=== PATIENT | female | born 1980 | race Two or more races ===

== ENCOUNTER 2024-02-29 14:54 | Inpatient (IN) | payer MEDICAID, OTHER ==
[~2024-02-29] VITALS: Ht 160 cm; Wt 104.4 kg
--- NOTE | 2024-02-29 16:12 | ED.PDOC ---
HPI Comments A 43 year old female presents to the ED with a chief complaint of chest pain with SOB onset 5 days. Patient states she began experiencing chest pain, described as a pressure/tightness sensation and SOB 5 days ago and noticed it gets worse when she tries to walk. Patient rates her pain a 8/10. She also noticed her pain radiates to her back and her bilateral legs are swollen. She has a past medical history of Asthma and DM. No other symptoms or modifying factors present at this time. Chief Complaint: Shortness of Breath Time Seen by MD: 15:44 Primary Care Provider: DOES NOT KNOW NAME Reviewed Notes: Nurses Notes, Medications, Allergies Allergies: Coded Allergies: NO KNOWN ALLERGIES (Unverified , 02/29/24) Information Source: Patient Mode of Arrival: Ambulatory Severity: Moderate Timing: Days Duration: Since onset Prehospital treatment: None Radiation: Back Quality: Pressure, Tightness Onset: With Light Exertion Cardiac Risk Factors: Diabetes Associated Signs and Symptoms: SOB, Calf Swelling, Back Pain Past Medical History PAST MEDICAL HISTORY: Asthma, DM Surgical History: Hysterectomy, Tubal Ligation [employer] History: No Pertinent [employer] History Family History Family History: Family hx of DM, Family hx of Cancer Social History Smoker: Non-Smoker Alcohol: Denies ETOH Use Drugs: Marijuana Lives In: Home Constitutional: denies: chills, diaphoresis, fatigue, fever, malaise, sweats, weakness, others EENTM: denies: blurred vision, double vision, ear bleeding, ear discharge, ear drainage, ear pain, ear ringing, eye pain, eye redness, hearing loss, mouth pain, mouth swelling, nasal discharge, nose bleeding, nose congestion, nose pain, photophobia, tearing, throat pain, throat swelling, voice changes, others Respiratory: reports: shortness of breath; denies: cough, hemoptysis, orthopnea, SOB at rest, SOB with excertion, stridor, wheezing, others Cardiovascular: reports: chest pain; denies: dizzy spells, diaphoresis, Dyspnea on exertion, edema, irregular heart beat, left arm pain, lightheadedness, palpitations, PND, syncope, others Gastrointestinal: denies: abdomen distended, abdominal pain, blood streaked bowels, constipated, diarrhea, dysphagia, difficulty swallowing, hematemesis, melena, nausea, poor appetite, poor fluid intake, rectal bleeding, rectal pain, vomiting, others Genitourinary: denies: abnormal vagina bleeding, burning, dyspareunia, dysuria, flank pain, frequency, hematuria, incontinence, pain, , vagina discharge, urgency, others Neurological: denies: dizziness, fainting, headache, left sided numbness, left sided weakness, numbness, paresthesia, pre-existing deficit, right sided numbness, right sided weakness, seizure, speech problems, tingling, tremors, weakness, others Musculoskeletal: reports: back pain, others (bilateral leg swelling); denies: gout, joint pain, joint swelling, muscle pain, muscle stiffness, neck pain Integumetry: denies: bruises, change in color, change in hair/nails, dryness, laceration, lesions, lumps, rash, wounds, others Allergic/Immunocompromised: denies: Difficulty Healing, Frequent Infections, Hives, Itching, others Hematologic/Lymphatic: denies: anemia, blood clots, easy bleeding, easy bruising, swollen glands, others Endocrine: denies: excessive hunger, excessive sweating, excessive thirst, excessive urination, flushing, intolerance to cold, intolerance to heat, unexplained weight gain, unexplained weight loss, others Psychiatric: denies: anxiety, bipolar disorder, depression, hopeless, panic disorder, schizophrenia, sleepless, suicidal, others Physical Exam General Appearance: Mild Distress HEENT: Normal ENT Inspection, Pharynx Normal, TMs Normal Neck: Full Range of Motion, Non-Tender, Normal, Normal Inspection Respiratory: Chest Non-Tender, Lungs Clear, No Accessory Muscle Use, No R espiratory Distress, Normal Breath Sounds Cardiovascular: No Edema, No JVD, No Murmur, No Gallop, Normal Peripheral Pulses, Regular Rate/Rhythm Breast Exam: Deferred Gastrointestinal: No Organomegaly, Non Tender, No Pulsatile Mass, Normal Bowel Sounds, Soft Genitalia: Deferred Pelvic: Deferred Rectal: Deferred Extremities: No calf tenderness, Normal capillary refill, No pedal edema Musculoskeletal : Apperance: Normal Neurologic: Alert, 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 Was a procedure done?: No CP Differential Dx Differential Diagnosis: Angina, Pulmonary Embolus, PVC's, Renal Failure Differential Diagnosis: CHF Differential Diagnosis: Esophageal reflux/spasm, Gastritis X-Ray, Labs, Meds, VS Vital Signs Date Time Temp Pulse Resp B/P (MAP) Pulse Ox O2 Delivery O2 Flow Rate FiO2 02/29/24 19:56 93 Room Air 02/29/24 19:56 93 Room Air* 0 21 02/29/24 19:56 98.7 77 18 158/86 93 0.0 21 98.7 02/29/24 18:25 77 18 93 Room Air* 0 21 02/29/24 18:25 77 18 158/86 (110) 93 02/29/24 17:14 93 02/29/24 15:46 17 97 Room Air* 0 02/29/24 15:43 98.7 90 17 148/93 (111) 97 Lab Test 02/29/24 19:55 02/29/24 18:00 02/29/24 17:09 02/29/24 16:55 Range/Units Troponin I High Sensitivity < 3 L < 3 L < 3 L </=34 ng/L White Blood Count 7.7 4.4-10.8 10^3/uL Red Blood Count 4.75 4.0-5.20 10^6/uL Hemoglobin 12.2 12.2-16.2 g/dL Hematocrit 37.1 36.0-46.0 % Mean Corpuscular Volume 78.2 L 80.0-100.0 fL Mean Corpuscular Hemoglobin 25.6 L 28.0-32.0 pg Mean Corpuscular Hemoglobin Concent 32.8 32.0-36.0 g/dL Red Cell Distribution Width 16.8 H 11.8-14.3 % Platelet Count 331 140-450 10^3/uL Mean Platelet Volume 8.5 6.9-10.8 fL Neutrophils (%) (Auto) 64.5 37.0-80.0 % Lymphocytes (%) (Auto) 25.8 10.0-50.0 % Monocytes (%) (Auto) 7.6 0.0-12.0 % Eosinophils (%) (Auto) 1.4 0.0-7.0 % Basophils (%) (Auto) 0.7 0.0-2.0 % Neutrophils # (Auto) 5.0 1.6-8.6 10 ^3/uL Lymphocytes # (Auto) 2.0 0.4-5.4 10 ^3/uL Monocytes # (Auto) 0.6 0-1.3 10 ^3/uL Eosinophils # (Auto) 0.1 0-0.8 10 ^3/uL Basophils # (Auto) 0.1 0-0.2 10 ^3/uL Nucleated Red Blood Cells 0.0 % D-Dimer, Quantitative 1.14 H 0.0-0.49 mg/L FEU Sodium Level 140 136-145 mmol/L Potassium Level 3.6 3.5-5.1 mmol/L Chloride Level 108 H 98-107 mmol/L Carbon Dioxide Level 25 20-31 mmol/L Anion Gap 7 5-15 Blood Urea Nitrogen 9 9-23 mg/dL Creatinine 1.06 H 0.550-1.02 mg/dL Glomerular Filtration Rate Calc 67 >90 mL/min BUN/Creatinine Ratio 8.5 L 10.0-20.0 Serum Glucose 103 74-106 mg/dL Calcium Level 9.9 8.7-10.4 mg/dL B-Type Natriuretic Peptide 11.31 0-100 pg/mL Urine Color Light-red Yellow Urine Clarity Turbid H Clear Urine pH 5.5 5.0-9.0 Urine Specific [place] 1.012 1.001-1.035 Urine Protein 1+ H Negative Urine Ketones 1+ H Negative Urine Blood 3+ H Negative /uL Urine Nitrite Negative Negative Urine Bilirubin Negative Negative Urine Urobilinogen Normal Negative mg/dL Urine Leukocyte Esterase 2+ Negative /uL Urine RBC 2920 0 - 4 /hpf Urine WBC 153 0 - 5 /hpf Urine Squamous Epithelial Cells Few <5 /hpf Urine Bacteria None seen None Seen /hpf Urine Glucose Normal Normal mg/dL PROCEDURE(s): CXRP - CHEST PORTABLE IMPRESSION: 1. No radiographic evidence of acute cardiopulmonary disease. HS:Y The urine test is positive for a UTI The patient was being started on 1 g of Rocephin IV piggyback The patient's CBC is within normal limits The troponin level x3 is negative The chemistry panel is within normal limits We are ordering a CT scan of the chest to rule out PE secondary to the D-dimer being elevated at 1.14 The patient was being admitted at this time. Images Reviewed?: Images reviewed and evaluated by me Time of 1ST Reevaluation: 16:14 Reevaluation 1ST: Unchanged Patient Education/Counseling: Diagnosis, Treatment, Prognosis Family Education/Counseling: No Family Present Departure 1 Departure Time of Disposition: 20:38 Impression: Primary Impression: Acute respiratory failure Qualified Codes: J96.01 - Acute respiratory failure with hypoxia Additional Impressions: Elevated d-dimer UTI (urinary tract infection) Qualified Codes: N30.01 - Acute cystitis with hematuria Disposition: ADMITTED INPATIENT Admit to: [facility] Condition: Fair Critical Care Note Critical Care Time?: Yes (35 min-critical care time only) Stability Stability form required: Yes Unstable for transfer: Telemetry monitoring (Telemetry monitoring required), ED Physician Assesment (Clinical assesment) Heart Score Heart Score: Heart Score Response (Comments) Value History Moderate Suspicious 1 EKG Repolarization Disturb 1 Age <45 0 Risk Factors 1 or 2 risk factors 1 Troponin Normal limit 0 Total 3 I personally scribed for DAVID CRUZ MD ([email or web address]) on 02/29/24 at 16:12. Electronically submitted by Annie Alford ([email or web address]). I personally scribed for DAVID CRUZ MD ([email or web address]) on 02/29/24 at 16:55. Electronically submitted by Annie Alford ([email or web address]). DAVID CRUZ MD Feb 29, 2024 16:12
--- NOTE | 2024-02-29 16:33 | DVH ---
CHEST RADIOGRAPH Indication:sob Technique: Single frontal view of the chest was obtained Comparison: None FINDINGS: Lines and Tubes: None Lungs: No focal consolidation. Pleura: No effusion. No pneumothorax. Cardiomediastinal contours: Unremarkable Bones: No acute osseous abnormality. IMPRESSION: 1. No radiographic evidence of acute cardiopulmonary disease. HS:Y
[2024-02-29 16:55] LABS: Urine Bacteria None Seen /hpf (None Seen)
[2024-02-29 17:24] LABS: Urine Blood 3+ /uL (Negative); Urine Clarity Turbid (Clear); Urine Color Light-Red (Yellow); Urine Protein, UAD 1+ (Negative); Urine Specific Gravity 1.012 (1.001-1.035); Urine Urobilinogen Normal (Negative); Urine WBC 153 /hpf (0 - 5); Urine pH 5.5 (5.0-9.0)
[2024-02-29 17:26] LABS: Basophils # (auto) 0.1 10 ^3/uL (0-0.2); Basophils % (auto) 0.7 % (0.0-2.0); Eosinophils # (auto) 0.1 10 ^3/uL (0-0.8); Eosinophils % (auto) 1.4 % (0.0-7.0); Hematocrit 37.1 % (36.0-46.0); Hemoglobin 12.2 g/dL (12.2-16.2); Lymphocytes % (auto) 25.8 % (10.0-50.0); Mean Corpuscular Hemoglobin 25.6 pg (28.0-32.0); Mean Corpuscular Hgb Conc. 32.8 g/dL (32.0-36.0); Mean Corpuscular Volume 78.2 fL (80.0-100.0); Monocytes # (auto) 0.6 10 ^3/uL (0-1.3); Monocytes % (auto) 7.6 % (0.0-12.0); Neutrophils % (auto) 64.5 % (37.0-80.0); Platelet Count (auto) 331 10^3/uL (140-450); Red Blood Cells 4.75 10^6/uL (4.0-5.20); Red Cell Distribution Width 16.8 % (11.8-14.3); White Blood Cell 7.7 10^3/uL (4.4-10.8)
[2024-02-29 17:49] LABS: Chloride 108 mmol/L (98-107); Potassium 3.6 mmol/L (3.5-5.1); Sodium 140 mmol/L (136-145)
[2024-02-29 17:50] LABS: Anion Gap 7 (5-15); Calcium 9.9 mg/dL (8.7-10.4); Carbon Dioxide 25 mmol/L (20-31)
[2024-02-29 17:55] LABS: BUN/Creatinine Ratio 8.5 (10.0-20.0); Blood Urea Nitrogen 9 mg/dL (9-23); Glucose 103 mg/dL (74-106)
[2024-02-29 18:25] VITALS: PULSE 77; RESP 18; O2SAT 93
[2024-02-29] MEDS ORDERED: MORPHINE SULFATE INJ 2 MG/ml SYRG IV PRN ×2 (19:45→23:15)
[2024-02-29] MEDS ORDERED: HYDROcodone-ACET 5/325MG TAB PO PRN (19:45)
[2024-02-29] MEDS ORDERED: DOCUSATE SOD 100 MG CAP PO PRN (19:45)
[2024-02-29] MEDS ORDERED: DEXTROSE (50%) 50ML SYRG IV PRN (19:45)
[2024-02-29] MEDS ORDERED: cloNIDine HCL 0.1 MG TAB PO PRN (19:45)
[2024-02-29] MEDS ORDERED: ONDANSETRON HCL 4 MG/2 ML VIAL IV PRN (19:45)
[2024-02-29 19:56] VITALS: BP 158/86; PULSE 77; RESP 18; TEMP 98.7; O2SAT 93
[2024-02-29] MEDS: cefTRIAXone 1GM/50ML D5W 50 ML IV ONE (21:06)
--- NOTE | 2024-02-29 21:19 | DVH ---
CT ANGIOGRAM CHEST WITH CONTRAST FOR PULMONARY EMBOLUS CLINICAL HISTORY: sob TECHNIQUE: Helical axial scans of the chest during dynamic intravenous contrast injection. Pulmonary embolism protocol. Multiplanar reformats. Postprocessing MIP images. One or more of the following rad iation dose reduction techniques were used for this examination: automated exposure control, adjustme nt of the mA and/or kV according to patient size, use of iterative reconstruction technique. COMPARISON: Chest x-ray obtained earlier the same day. FINDINGS: Pulmonary arteries: Adequate enhancement of the pulmonary arteries to the very proximal segmental lev el. Streak and motion artifact somewhat limit evaluation. As visualized, no discrete filling defects identified within the central, lobar or very proximal segmental branches. Mediastinum: Heart is normal in size. No pericardial effusion. No mediastinal adenopathy. Lung parenchyma: No dominant consolidation. Pleura: No sizable pleural effusions or pneumothorax. Chest wall and axillae: No appreciable axillary adenopathy. No grossly displaced rib fractures identi fied. Upper abdomen: Lap band device is noted. No acute findings as visualized. IMPRESSION: No definite evidence of pulmonary embolism as visualized.
[2024-02-29] MEDS: IOHEXOL 350 MG/ML 100ML IJ ONE (21:28)
[2024-02-29] MEDS: InsuLIN REG 1unit/0.01ml Soln (100units/ml) SC SCH (21:51)
[2024-02-29] MEDS: ACCU-CHEK COMFORT CURVE STRIP VI SCH (21:51)
[2024-02-29] MEDS: SODIUM CHLOR 0.9% PF (SALINE LOCK) 10ML VIAL/SYR IV SCH (21:51)
--- NOTE | 2024-02-29 22:08 | DVHHPRES ---
History of Present Illness Resident Creating Document: PAOLA BELLA RESIDENT History of Present Illness This is a 43-year-old female with past medical history of asthma, prediabetes presented to the ED with a chief complaint of intermittent shortness of breath and chest pain for last 5 days prior to this admission. According to the patient central chest pain, sharp in nature 8/10 and radiates to the left shoulder with no aggravating and relieving factors and associated with shortness of breath. Patient has history of seasonal allergic asthma and exacerbate espec ially in winter fall and spring . She also mentioned that recently she noticed shortness of breath getting worse when she tries to walk or any kind of exertion. The patient denies abdominal pain, dizziness, diaphoresis, nausea, vomiting or any change in bowel and bladder habit. Past Medical History Bronchial asthma, prediabetes Past Surgical History Tubal ligation, adenoidectomy, lap band and emergency Family History Type 2 diabetes runs in the family Smoke: No ALCOHOL: none Drugs: None Lives: with Family Review of Systems Constitutional: No: Fever, Chills, Sweats, Weakness, Malaise, Other Eyes: No: Pain, Vision change, Conjunctivae inflammation, Eyelid inflammation, Other, Redness ENT: No: Ear pain, Ear discharge, Nose pain, Nose discharge, Nose congestion, Mouth pain, Mouth swelling, Throat pain, Throat swelling, Other Respiratory: Shortness of breath; No: Cough, Dry, SOB with excertion, Wheezing, Hemoptysis, Pleuritic Pain, Sputum, Wheezing, Other Cardiovascular: Chest Pain; No: Palpitations, Orthopnea, Paroxysmal Noc. Dyspnea, Edema, Lt Headedness, Other Gastrointestinal: No: Nausea, Vomiting, Abdominal Pain, Diarrhea, Constipation, Melena, Hematochezia, Other Genitourinary: No Dysuria, No Frequency, No Incontinence, No Hematuria, No Retention, No Other Musculoskeletal: No: other, neck pain, shoulder pain, arm pain, back pain, hand pain, leg pain, foot pain Skin: No: Rash, Lesions, Jaundice, Bruising, Other Neurological: No: Weakness, Numbness, Incoordination, Change in speech, Confusion, Seizures, Other Allergies: Coded Allergies: NO KNOWN ALLERGIES (Unverified , 02/29/24) Medications Current Medications Medications Dose Ordered Sig/Boom Route Start Time Stop Time Status Last Admin Dose Admin Clonidine HCl 0.1 mg Q4HP PRN PO 02/29/24 19:45 Albuterol 2.5 mg Q4HPRN PRN NEB 02/29/24 19:45 Diagnostic Test (Pha) 1 strip ACHS 02/29/24 22:00 02/29/24 21:51 1 STRIP Insulin Human Regular ACHS SC 02/29/24 22:00 Dextrose 50 ml UD PRN IV 02/29/24 19:45 Sodium Chloride 10 ml Q8HR IV 02/29/24 22:00 02/29/24 21:51 10 ML Acetaminophen/ Hydrocodone Bitart 1 tab Q4HP PRN PO 02/29/24 19:45 Ondansetron HCl 4 mg Q4HP PRN IV 02/29/24 19:45 Docusate Sodium 100 mg BIDPRN PRN PO 02/29/24 19:45 Acetaminophen 650 mg Q6HP PRN PO 02/29/24 19:45 Morphine Sulfate 2 mg Q4HPRN PRN IV 02/29/24 19:45 Exam Vital Signs Vital Signs Date Time Temp Pulse Resp B/P (MAP) Pulse Ox O2 Delivery O2 Flow Rate FiO2 02/29/24 21:08 98.3 84 18 149/74 (99) 98 98.3 02/29/24 19:56 Room Air 02/29/24 19:56 0 21 Exam Physical examination: General Appearance: Alert, Oriented X3, Cooperative, No acute distress HEENT: Atraumatic, PERRLA, EOMI, Mucous membrane moist/pink Respiratory: Clear to auscultation, Normal air movement Cardiovascular: Regular rate, Normal S1, Normal S2, No murmurs, no chest wall tenderness Abdominal: Normal bowel sounds, Soft, No tenderness, No hepatospenomegaly, No masses Extremities: No clubbing, No cyanosis, No edema, Normal pulses, No tenderness/swelling Skin: No rashes, No breakdown, No significant lesion Neuro: Normal gait, Normal speech, Strength at 5/5 X4 ext, Normal tone, Sensation intact, grossly intact cranial nerves. Psych/Mental Status: Mental status NL, Mood NL Labs/Xrays Labs Test 02/29/24 21:50 02/29/24 19:55 02/29/24 17:09 02/29/24 16:55 Range/Units POC Glucose 102 70-106 mg/dl Troponin I High Sensitivity < 3 L </=34 ng/L White Blood Count 7.7 4.4-10.8 10^3/uL Red Blood Count 4.75 4.0-5.20 10^6/uL Hemoglobin 12.2 12.2-16.2 g/dL Hematocrit 37.1 36.0-46.0 % Mean Corpuscular Volume 78.2 L 80.0-100.0 fL Mean Corpuscular Hemoglobin 25.6 L 28.0-32.0 pg Mean Corpuscular Hemoglobin Concent 32.8 32.0-36.0 g/dL Red Cell Distribution Width 16.8 H 11.8-14.3 % Platelet Count 331 140-450 10^3/uL Mean Platelet Volume 8.5 6.9-10.8 fL Neutrophils (%) (Auto) 64.5 37.0-80.0 % Lymphocytes (%) (Auto) 25.8 10.0-50.0 % Monocytes (%) (Auto) 7.6 0.0-12.0 % Eosinophils (%) (Auto) 1.4 0.0-7.0 % Basophils (%) (Auto) 0.7 0.0-2.0 % Neutrophils # (Auto) 5.0 1.6-8.6 10 ^3/uL Lymphocytes # (Auto) 2.0 0.4-5.4 10 ^3/uL Monocytes # (Auto) 0.6 0-1.3 10 ^3/uL Eosinophils # (Auto) 0.1 0-0.8 10 ^3/uL Basophils # (Auto) 0.1 0-0.2 10 ^3/uL Nucleated Red Blood Cells 0.0 % D-Dimer, Quantitative 1.14 H 0.0-0.49 mg/L FEU Sodium Level 140 136-145 mmol/L Potassium Level 3.6 3.5-5.1 mmol/L Chloride Level 108 H 98-107 mmol/L Carbon Dioxide Level 25 20-31 mmol/L Anion Gap 7 5-15 Blood Urea Nitrogen 9 9-23 mg/dL Creatinine 1.06 H 0.550-1.02 mg/dL Glomerular Filtration Rate Calc 67 >90 mL/min BUN/Creatinine Ratio 8.5 L 10.0-20.0 Serum Glucose 103 74-106 mg/dL Calcium Level 9.9 8.7-10.4 mg/dL B-Type Natriuretic Peptide 11.31 0-100 pg/mL Urine Color Light-red Yellow Urine Clarity Turbid H Clear Urine pH 5.5 5.0-9.0 Urine Specific [place] 1.012 1.001-1.035 Urine Protein 1+ H Negative Urine Ketones 1+ H Negative Urine Blood 3+ H Negative /uL Urine Nitrite Negative Negative Urine Bilirubin Negative Negative Urine Urobilinogen Normal Negative mg/dL Urine Leukocyte Esterase 2+ Negative /uL Urine RBC 2920 0 - 4 /hpf Urine WBC 153 0 - 5 /hpf Urine Squamous Epithelial Cells Few <5 /hpf Urine Bacteria None seen None Seen /hpf Urine Glucose Normal Normal mg/dL Assessment/Plan Assessment/Plan Assessment and plan: # Chest pain rule out ACS - Initial EKG and troponins were unremarkable. - Ordered echo - Consulted Dr. Mayorga # Shortness of breath, ruled out pulmonary embolism - D-dimer was elevated - CT angio ruled out the possibility of pulmonary embolism # ERI likely due to hemodynamically mediated/VMN - IV normal saline at 75 mL/hour - Monitor BMP # Acute cystitis - UA is consistent with UTI - Ordered urine C/S - IV ceftriaxone 1 g daily # Obesity class 3 ( BMI 41.1 kg/m2) - Counseled patient regarding weight loss, lifestyle modification and physical exercise # DVT prophylaxis - SCD Goal of care discussed with the patient for more than 20 minutes full code Plan of treatment discussed with Dr. Kang Plan discussed with: Patient, Other Date of Service: Feb 29, 2024 Billing Provider: YOSEF KANG MD Common Visit Codes: [id number] INP/OBS CARE (HIGH) PAOLA BELLA RESIDENT Feb 29, 2024 22:08 YOSEF KANG MD Mar 01, 2024 09:33
[2024-02-29] MEDS: SODIUM CHLORIDE 0.9% 1,000 ML IV SCH (22:15)
[2024-02-29] MEDS: MELATONIN 5 MG TAB PO ONE (22:24)
[2024-02-29] MEDS ORDERED: NITROGLYCERIN 0.4 MG SL TAB SL PRN (23:15)
[2024-03-01] VITALS (8 sets, daily range): BP systolic 135–144; BP diastolic 89–102; PULSE 74–96; RESP 16–19; TEMP 97.7–97.8; O2SAT 95–100
[2024-03-01] MEDS: ACETAMINOPHEN 325 MG TAB PO PRN (02:17)
[2024-03-01] MEDS: ALBUTEROL SULF 2.5 MG/0.5ML(0.5%) NEB SOLN NEB PRN (02:42)
[2024-03-01 04:03] LABS: Basophils # (auto) 0.1 10 ^3/uL (0-0.2); Basophils % (auto) 0.9 % (0.0-2.0); Eosinophils # (auto) 0.2 10 ^3/uL (0-0.8); Eosinophils % (auto) 2.1 % (0.0-7.0); Hematocrit 34.8 % (36.0-46.0); Hemoglobin 11.4 g/dL (12.2-16.2); Lymphocytes % (auto) 25.4 % (10.0-50.0); Mean Corpuscular Hemoglobin 25.4 pg (28.0-32.0); Mean Corpuscular Hgb Conc. 32.7 g/dL (32.0-36.0); Mean Corpuscular Volume 77.8 fL (80.0-100.0); Monocytes # (auto) 0.7 10 ^3/uL (0-1.3); Monocytes % (auto) 9.4 % (0.0-12.0); Neutrophils # (auto) 4.8 10 ^3/uL (1.6-8.6); Neutrophils % (auto) 62.2 % (37.0-80.0); Platelet Count (auto) 308 10^3/uL (140-450); Red Blood Cells 4.47 10^6/uL (4.0-5.20); Red Cell Distribution Width 16.7 % (11.8-14.3); White Blood Cell 7.8 10^3/uL (4.4-10.8)
[2024-03-01 04:16] LABS: Alanine Aminotransferase 24 U/L (7-40); Albumin 4.2 g/dL (3.2-4.8); Alkaline Phosphatase 56 U/L (46-116); Anion Gap 8 (5-15); Aspartate Aminotransferase 16 U/L (13-40); BUN/Creatinine Ratio 7.3 (10.0-20.0); Bilirubin, Total 0.4 mg/dL (0.2-1.0); Blood Urea Nitrogen 6 mg/dL (9-23); Calcium 9.6 mg/dL (8.7-10.4); Carbon Dioxide 23 mmol/L (20-31); Chloride 108 mmol/L (98-107); Glucose 109 mg/dL (74-106); Potassium 3.3 mmol/L (3.5-5.1); Sodium 139 mmol/L (136-145); Total Protein 7.4 g/dL (5.7-8.2)
--- NOTE | 2024-03-01 06:56 | DVHINCON2 ---
Date of service: Mar 01, 2024 History of Present Illness HPI Patient is a 43-year-old female who presented with few days of chest discomfort/pressure and shortness of breath. She mentions that she started Wegovy around 2 weeks ago. She also has been on allergy shots. She started to be more short of breath and was sent to the hospital by cleaning handyman. She also is complaining of leg swellings for the past few weeks. She does have dyspnea on exertion. Cardiology is involved for cardiac aspects of care. Patient denies any previously diagnosed cardiac problem. She occasionally feels palpitation. She denies orthopnea/PND. She has not lost consciousness. Denies dizziness. Past Medical History Others Past medical history includes asthma, prediabetes, obesity, old history of tubal ligation//appendectomy/lap band. Family history includes diabetes mellitus. She occasionally uses marijuana. Denies regular cigarette smoking. Family History: DM Smoker: No Hx (Negative) Alocohol: None Drugs: Marijuana Lives with: With family Review of Systems Constitutional: No symptom reported Ears, Nose, & Throat: No symptom reported Eyes: No symptom reported Pulmonary/Respiratory: Dyspnea Cardiovascular: Chest Pain, Palpitations Gastrointestinal: No symptom reported All Other Systems 14 point review of system was performed. Relevant findings as per above and as per HPI. Otherwise negative. H&P Exam Vital Signs Vital Signs Date Time Temp Pulse Resp B/P (MAP) Pulse Ox O2 Delivery O2 Flow Rate FiO2 03/01/24 06:36 88 20 157/71 (99) 98 02/29/24 21:08 98.3 98.3 02/29/24 19:56 Room Air 02/29/24 19:56 0 21 General Appeara: Well developed, Well nourished, Normal Appearance, Obese Head Exam: Normal inspection Eye Exam: bilateral eye PERRL Nasal Exam: Normal inspection Mouth: Normal Inspection Pulmonary/Respiratory: Lungs clear Cardiovascular/Chest: Edema, Regular rate Peripheral Pulses: 2+ carotid (R), 2+ carotid (L), 2+ femoral (R), 2+ femoral (L), 2+ dorsalis pedis (R), 2+ dorsalis pedis (L), 2+ Radial (R), 2+ Radial (L) Abdominal Exam: Normal bowel sounds, Soft, No hepatospenomegaly Neuro/Mental St: Alert, Oriented Appearance: Appropriate appearance Eye contact/ Speech: Cooperative Thoughts/Psych: Normal thought pattern Labs/Xrays Labs Test 03/01/24 06:27 03/01/24 03:35 02/29/24 19:55 02/29/24 17:09 Range/Units POC Glucose 112 H 70-106 mg/dl White Blood Count 7.8 4.4-10.8 10^3/uL Red Blood Count 4.47 4.0-5.20 10^6/uL Hemoglobin 11.4 L 12.2-16.2 g/dL Hematocrit 34.8 L 36.0-46.0 % Mean Corpuscular Volume 77.8 L 80.0-100.0 fL Mean Corpuscular Hemoglobin 25.4 L 28.0-32.0 pg Mean Corpuscular Hemoglobin Concent 32.7 32.0-36.0 g/dL Red Cell Distribution Width 16.7 H 11.8-14.3 % Platelet Count 308 140-450 10^3/uL Mean Platelet Volume 8.6 6.9-10.8 fL Neutrophils (%) (Auto) 62.2 37.0-80.0 % Lymphocytes (%) (Auto) 25.4 10.0-50.0 % Monocytes (%) (Auto) 9.4 0.0-12.0 % Eosinophils (%) (Auto) 2.1 0.0-7.0 % Basophils (%) (Auto) 0.9 0.0-2.0 % Neutrophils # (Auto) 4.8 1.6-8.6 10 ^3/uL Lymphocytes # (Auto) 2.0 0.4-5.4 10 ^3/uL Monocytes # (Auto) 0.7 0-1.3 10 ^3/uL Eosinophils # (Auto) 0.2 0-0.8 10 ^3/uL Basophils # (Auto) 0.1 0-0.2 10 ^3/uL Nucleated Red Blood Cells 0.0 % Sodium Level 139 136-145 mmol/L Potassium Level 3.3 L 3.5-5.1 mmol/L Chloride Level 108 H 98-107 mmol/L Carbon Dioxide Level 23 20-31 mmol/L Anion Gap 8 5-15 Blood Urea Nitrogen 6 L 9-23 mg/dL Creatinine 0.82 0.550-1.02 mg/dL Glomerular Filtration Rate Calc 91 >90 mL/min BUN/Creatinine Ratio 7.3 L 10.0-20.0 Serum Glucose 109 H 74-106 mg/dL Calcium Level 9.6 8.7-10.4 mg/dL Total Bilirubin 0.4 0.2-1.0 mg/dL Aspartate Amino Transferase (AST) 16 13-40 U/L Alanine Aminotransferase (ALT) 24 7-40 U/L Alkaline Phosphatase 56 46-116 U/L Total Protein 7.4 5.7-8.2 g/dL Albumin 4.2 3.2-4.8 g/dL Troponin I High Sensitivity < 3 L </=34 ng/L D-Dimer, Quantitative 1.14 H 0.0-0.49 mg/L FEU B-Type Natriuretic Peptide 11.31 0-100 pg/mL Test 02/29/24 16:55 Range/Units Urine Color Light-red Yellow Urine Clarity Turbid H Clear Urine pH 5.5 5.0-9.0 Urine Specific [place] 1.012 1.001-1.035 Urine Protein 1+ H Negative Urine Ketones 1+ H Negative Urine Blood 3+ H Negative /uL Urine Nitrite Negative Negative Urine Bilirubin Negative Negative Urine Urobilinogen Normal Negative mg/dL Urine Leukocyte Esterase 2+ Negative /uL Urine RBC 2920 0 - 4 /hpf Urine WBC 153 0 - 5 /hpf Urine Squamous Epithelial Cells Few <5 /hpf Urine Bacteria None seen None Seen /hpf Urine Glucose Normal Normal mg/dL Assessment/Plan Plan Patient is a 43-year-old female who presented with few days of chest discomfort/pressure and shortness of breath. She mentions that she started Wegovy around 2 weeks ago. She also has been on allergy shots. She started to be more short of breath and was sent to the hospital by cleaning handyman. She also is complaining of leg swellings for the past few weeks. She does have dyspnea on exertion. Cardiology is involved for cardiac aspects of care. Patient denies any previously diagnosed cardiac problem. She occasionally feels palpitation. She denies orthopnea/PND. She has not lost consciousness. Denies dizziness. Not in acute distress. Lying flat in bed. No JVD. Mucosa is pink and wet. No goiter. No carotid bruit. Lungs are clear to auscultation. Not using accessory muscles of breathing. Cardiac: Regular, no thrill/gallop. Abdomen is soft and obese. There is no gross mass/hepatomegaly. Bowel sound is positive. There was no tenderness. Extremities revealed bilateral 1+ edema. Dorsalis pedis is 2+ bilateral. Past medical history includes asthma, prediabetes, obesity, old history of tubal ligation//appendectomy/lap band. Family history includes diabetes mellitus. She occasionally uses marijuana. Denies regular cigarette smoking. Creatinine: 1.06 - 0.82 Potassium: 3.6 - 3.3 BNP: 11.31 Troponin (high sensitive): <3 - <3 - <3 D-dimer: 1.14 Urinalysis was positive for blood and it was turbid Chest x-ray reported: IMPRESSION: 1. No radiographic evidence of acute cardiopulmonary disease. CT angio of the chest reported: Pulmonary arteries: Adequate enhancement of the pulmonary arteries to the very proximal segmental level. Streak and motion artifact somewhat limit evaluation. As visualized, no discrete filling defects identified within the central, lobar or very proximal segmental branches. Mediastinum: Heart is normal in size. No pericardial effusion. No mediastinal adenopathy. Lung parenchyma: No dominant consolidation. Pleura: No sizable pleural effusions or pneumothorax. Chest wall and axillae: No appreciable axillary adenopathy. No grossly displaced rib fractures identified. Upper abdomen: Lap band device is noted. No acute findings as visualized. IMPRESSION: No definite evidence of pulmonary embolism as visualized. EKG reveals sinus rhythm, no ST-T changes Tele reveals sinus rhythm Patient is a 43-year-old female who presented with chest discomfort/shortness of breath. Does have history of asthma. Does have a history of repeated allergies for which is being given allergy shots. Was started on Wegovy recently. Her comorbidity includes prediabetes and morbid obesity. Presentation is less considered acute coronary syndrome, still as she has risk factors echocardiogram can be justified. Serial, high sensitive troponin has been negative. EKG has been nonrevealing. D-dimer was somehow elevated, but CT angio ruled out pulmonary emboli. Presentation also questions component of asthma attack. It is of note that at the time of evaluation lungs were clear to auscultation. There was minimal peripheral edema. Presentation is not considered acute heart failure at this point. Shortness of breath Chest pain, atypical Morbid obesity Asthma attack Prediabetes Abnormal D-dimer UTI Cardiac suggestion for management: Manage on telemetry Follow-up electrolytes and kidney function tests and correct abnormalities. Keep potassium above 4 and magnesium above 2 Request for echocardiogram Request for venous Doppler of bilateral lower extremities Ischemic workup (nuclear stress test) and long-term monitor can be arranged as outpatient. Management of possible UTI as per primary team Further evaluation and management depends on the above and clinical course Lifestyle and risk factor modifications Thank you for consultation A total of 75 minutes was spent reviewing the patient record, examining the patient, making a diagnostic and therapeutic plan, discussing this plan with medical personnel, following up on diagnostic studies and following the patient for clinical stability excluding any and all procedures. At least 50% of this time was spent in direct, [id number] contact. Thank you for allowing me to participate in this patient's care. Further recommendations will depend on patient's clinical course. Please do not hesitate to contact me if you have any questions or concerns. This medical document was created using electronic medical record system with [employer] computerized dictation system. Although this document has been carefully reviewed, there may still be some phonetic and typographical errors. These areas are purely typographical due to the imperfection of the software programs, and do not reflect any compromise in the patient's medical care. Plan discussed with: Patient, Other (nurse) SILVIA BINGHAM MD Mar 01, 2024 06:56
--- NOTE | 2024-03-01 07:13 | ECG ---
[facility] Test Date: 2024-03-01 Test Time: 06:31:46 Pat Name: TOMAS MARX Department: ED Room: 0217 Gender: F Hospice Community Liaison: JAMES : 1980 Requested By: DAVID CRUZ Order Number: [id number] Reading MD: Buck Lopez Measurements Intervals [place] Rate: 80 P: 48 [place]: 131 QRS: 50 QRSD: 88 T: 47 QT: 408 QTc: 471 Interpretive Statements Sinus rhythm Low voltage, precordial leads Electronically Signed On 03-03-2024 11:52:53 PST by Buck Lopez Please click the below link to view image of tracing.
--- NOTE | 2024-03-01 08:35 | DVH ---
BILATERAL LOWER EXTREMITY VENOUS DOPPLER CLINICAL HISTORY: r/o dvt Technique: Duplex Doppler evaluation of the deep venous systems of both lower extremities from the co mmon femoral veins to the popliteal veins including color Doppler and spectral/pulsed waveform analys is was performed. COMPARISON: None FINDINGS: The right and left common femoral, superficial femoral, popliteal, posterior tibial and peroneal vein s appear patent with normal augmentation, phasicity, compressibility and color-flow. IMPRESSION: 1. There is no sonographic evidence for DVT in the lower extremities. HS:Y
[2024-03-01] MEDS: POTASSIUM CHL 20 Meq TABLET PO ONE (09:03)
[2024-03-01] MEDS ORDERED: IPRATROPIUM BROM 0.5 MG/2.5ML INH SOL NEB PRN (11:00)
--- NOTE | 2024-03-01 13:40 | ECG ---
[facility] Test Date: 2024-03-01 Test Time: 09:51:00 Pat Name: TOMAS LEETON Department: ER Room: 0217 B Gender: F Electrical Linesworker: GP : 1980 Requested By: DAVID CRUZ Order Number: [id number] Reading MD: Buck Lopez Measurements Intervals [place] Rate: 80 P: 26 [place]: 108 QRS: 55 QRSD: 83 T: 70 QT: 375 QTc: 433 Interpretive Statements Sinus rhythm Short [place] interval Low voltage, precordial leads Electronically Signed On 03-03-2024 11:53:07 PST by Buck Lopez Please click the below link to view image of tracing.
--- NOTE | 2024-03-01 14:17 | DVHPNRES ---
Progress Note Date Seen: Mar 01, 2024 Resident Creating Document: CHINMAY BARCENAS RESIDENT Medical Necessity Reason Pt with a Central, PICC or Fol: No Subjective Review of Systems Patient is 43 years old female with past medical history of bronchial asthma, prediabetes, obesity came with a complaint of chest pain that started 1 day ago. Patient reported pain was central in nature, pressure-like, radiating to the left jaw and back, 8/10 in severity, no aggravating or relieving factor. Patient also endorsed short of breath and some wheezing during chest pain. On further discussion patient also reported having cough with mild whitish phlegm and some palpitation. Patient denied fever, troponin to the chest, acute joint pain or swelling, diarrhea, constipation, dizziness or vertigo, dysarthria. EKG revealed within sinus rhythm, no ST elevation noted. Initial lab workup revealed mild hypokalemia potassium 3.3, ERI serum creatinine 1.06, D-dimer mildly elevated 1.14, urinalysis significant for UTI, leukocyte esterase 2+, WBC 143, RBC 2920. CT angio negative for pulmonary embolism. Doppler study of the lower extremity was negative for DVT. Echo 2D LVEF 60%. PMH-bronchial asthma, prediabetes, obesity PSH- Tubal ligation, adenoidectomy, lap band and emergency Allergy- NKDA Personal History/ Social History- denies smoking/alcoholism/drug abuse, lives with son use Patient was seen today at the bedside. Patient reports feeling better today Gastrointestinal- denies any rectal bleeding, nausea or vomiting Musculoskeletal-denies acute joint swelling or tenderness or redness Neurological- denies acute dysarthria, dysphagia, change in vision Psychiatry- denies depression or SI or HI Skin- denies acute rash or purpura Patient was seen today for clinical evaluation. Labs and chart reviewed. Echo 2D LVEF 60%.. Patient reports feeling better today, denied acute chest pain or shortness of breath. Patient's lungs are clear on auscultation. Patient was seen by Cardiology and recommended chest pain was unlikely acute coronary syndrome. Cardiology also recommended-Ischemic workup (nuclear stress test) and long-term monitor can be arranged as outpatient. Objective vital signs Vital Sign Date Time Temp Pulse Resp B/P (MAP) Pulse Ox O2 Delivery O2 Flow Rate FiO2 03/01/24 12:00 93 14 130/73 (92) 98 03/01/24 08:00 99.2 99.2 03/01/24 08:00 Room Air* 0 21 Total Intake and Output 02/29/24 02/29/24 03/01/24 15:00 23:00 07:00 Intake Total 50 ml Balance 50 ml medications Current Medications Medications Dose Ordered Sig/Boom Route Start Time Stop Time Status Last Admin Dose Admin Clonidine HCl 0.1 mg Q4HP PRN PO 02/29/24 19:45 Albuterol 2.5 mg Q4HPRN PRN NEB 02/29/24 19:45 03/01/24 02:42 2.5 MG Diagnostic Test (Pha) 1 strip ACHS 02/29/24 22:00 03/01/24 11:40 1 STRIP Insulin Human Regular ACHS SC 02/29/24 22:00 Dextrose 50 ml UD PRN IV 02/29/24 19:45 Sodium Chloride 10 ml Q8HR IV 02/29/24 22:00 03/01/24 06:17 10 ML Acetaminophen/ Hydrocodone Bitart 1 tab Q4HP PRN PO 02/29/24 19:45 Ondansetron HCl 4 mg Q4HP PRN IV 02/29/24 19:45 Docusate Sodium 100 mg BIDPRN PRN PO 02/29/24 19:45 Acetaminophen 650 mg Q6HP PRN PO 02/29/24 19:45 03/01/24 13:18 650 MG Morphine Sulfate 2 mg Q4HPRN PRN IV 02/29/24 19:45 Ceftriaxone Sodium 50 ml @ 100 mls/hr DAILY@2100 IV 03/01/24 21:00 Sodium Chloride 1,000 ml @ 75 mls/hr [id number] IV 02/29/24 22:15 Nitroglycerin 0.4 mg Q5MINP PRN SL 02/29/24 23:15 Morphine Sulfate 2 mg Q30M PRN IV 02/29/24 23:15 Ipratropium [place] 0.5 mg Q6HPRN PRN NEB 03/01/24 11:00 Examination General examination- awake, alert, oriented, conversant HEENT- PEERLA, no acute nasal discharge Cardiovascular- S1-S2 audible, rate and rhythm regular, no murmur Respiratory- CTAB, no wheeze or rhonchi Gastrointestinal-nontender, bowel sound+. Nondistended Musculoskeletal-no acute joint swelling or tenderness or redness# Lower extremity- no leg edema Neurological- cranial nerves intact, no acute dysarthria or dysphagia Psychiatry- denies depression or SI or HI Skin- no acute rash or purpura laboratory and microbiology Laboratory Tests 03/01/24 03:35 Test 03/01/24 03:35 Range/Units Serum Glucose 109 H 74-106 mg/dL Problem List/Assessment/Plan Problem List/Assessment/Plan #Acute hypoxic respiratory failure likely due to acute exacerbation asthma -patient reports wheezing at the beginning of the chest pain and shortness of breaths -CT chest negative for pulmonary embolism --EKG with a sinus rhythm, no acute ischemic change or ST elevation -troponin I negative -Doppler study study negative for DVT --status post cardiology consult, cardiology recommended-Ischemic workup (nuclear stress test) and long-term monitor can be arranged as outpatient. -continue nebulization as prescribed #Acute chest pain and shortness of breaths likely due to acute exacerbation of asthma, rule out ACS -EKG with a sinus rhythm, no acute ischemic change or ST elevation -troponin I negative -ECHO 2D LVEF 60%, no acute hypokinesia noted -Doppler study study negative for DVT ---CT chest negative for pulmonary embolism -status post cardiology consult, cardiology recommended-Ischemic workup (nuclear stress test) and long-term monitor can be arranged as outpatient. -continue nebulization as prescribed #Acute chest pain and shortness of breaths likely due to acute exacerbation of asthma, rule out ACS -continue nebulization as prescribed -EKG with a sinus rhythm, no acute ischemic change or ST elevation -troponin I negative -ECHO 2D LVEF 60%, no acute hypokinesia noted -Doppler study study negative for DVT ---CT chest negative for pulmonary embolism -status post cardiology consult, cardiology recommended-Ischemic workup (nuclear stress test) and long-term monitor can be arranged as outpatient. # UTI -urinalysis-leukocyte esterase 2+, WBC 153, -continue ceftriaxone 1 g IV daily -pending urine CS # ERI likely due to VMN -serum creatinine 1.06 -avoid dehydration and nephrotoxic drugs # mild hypokalemia -potassium 3.3, replenished -monitor BMP # mildly elevated D-dimer --EKG with a sinus rhythm, no acute ischemic change or ST elevation -troponin I negative -ECHO 2D LVEF 60%, no acute hypokinesia noted -Doppler study study negative for DVT ---CT chest negative for pulmonary embolism -status post cardiology consult, cardiology recommended-Ischemic workup (nuclear stress test) and long-term monitor can be arranged as outpatient. #-CT chest negative for pulmonary embolism --EKG with a sinus rhythm, no acute ischemic change or ST elevation -troponin I negative -Doppler study study negative for DVT # prediabetes -monitor blood sugar # obesity -patient was counseled about healthy diet, weight reduction, physical activity Goals of care/advance care planning; FULL CODE; discussed with the patient PUD prophylaxis: DVT prophylaxis: Not required patient ambulating Plan discussed with Dr. Osborn,,, nursing staff, patient Total time spent on patient evaluation, chart review, assessment and plan, discussion discussion >20 minutes Plan discussed with: Patient Plan discussed with: Patient, Other (RN) My Orders My Orders Orders - CHINMAY BARCENAS Procedure Category Date Status Time Ipratropium Medneb PHA 03/01/24 In Process (Atrovent Medneb) 11:00 Date of Service: Mar 01, 2024 Billing Provider: RACH OSBORN MD Common Visit Codes: 02841-[id number] INP/OBS CARE(HIGH) Secondary Visit Codes: [id number] CARE PLAN 30 MINUTES CHINMAY BARCENAS Mar 01, 2024 14:17 RACH OSBORN MD Mar 01, 2024 19:11
--- NOTE | 2024-03-01 15:14 | DVHSR ---
APPROVED REPORT EXAM: Two-dimensional and M-mode echocardiogram with Doppler and color Doppler. Blood Pressure: 157/71 mmHg INDICATION Chest Pain RISK FACTORS Obesity: Height: 5'3", Weight: 232 DIMENSIONS LVDd4.4 (3.8-5.7cm)LA (2D)4.2 (1.9-4.0cm)Aortic Root3.3 (2.0-3.7cm) LVDs3.0 (2.5-4.0cm)LA (MM) (1.9-4.0cm)Aortic Cusp Exc1.8 (1.5-2.0cm) EF (%) 60.0 (55-70%)Rt. Atrium3.7 (1.9-4.0cm)Asc. Aorta cm IVSd0.9 (0.7-1.1cm)RV (D)3.6 (1.8-2.4cm) PWd0.9 (0.7-1.1cm) Mitral Valve MitralMitral Stenosis E wave0.78m/sMV Mean GR.mmHg A wave0.82m/sMV Peak GR.mmHg E/A ratio1.02D MVAcm2 DECEL [id number] 1/2 Tim[place] Aortic Valve Aortic ValveAortic Stenosis V10.95m/Larry Mean GR.5mmHg V21.54m/Larry Peak GR.9mmHg LVOT Diameter1.9 (1.8-2.4cm)Doppler AVA1.75cm2 Pulmonic Valve V20.85m/s Conclusion Left ventricle: Left ventricle is normal sized with normal systolic function. LVEF was 60%. There was no gross wall motion abnormalities. Right ventricle is normal sized with normal systolic function. Both atria were normal sized. Aortic valve was trileaflet. There was no Aortic Stensis/insufficiency. There was trace Mitral Regurg itation. There was no Tricuspid regurgitation. There was trace Pulmonary valve insufficiency. As there was no good tricuspid regurgitation jet, RVSP could not be estimated. There was no pericardi al effusion. There was no echocardiographic evidence for pulmonary hypertension.
[2024-03-01] MEDS ORDERED: ZOLPIDEM TARTRATE 5 MG TAB PO PRN (16:15)
[2024-03-01] MEDS: cefTRIAXone 1GM/50ML D5W 50 ML IV SCH (21:26)
[2024-03-02 01:00] VITALS: BP 111/69; PULSE 73; RESP 18; TEMP 97.9; O2SAT 96
[2024-03-02 05:00] VITALS: BP 135/82; PULSE 80; RESP 18; TEMP 98.2; O2SAT 97
--- NOTE | 2024-03-02 06:37 | DVHPN2 ---
Progress Note - Dictate Date Seen: Mar 02, 2024 Medical Necessity Reason Pt with a Central, PICC or Fol: No vital signs Vital Sign Date Time Temp Pulse Resp B/P (MAP) Pulse Ox O2 Delivery O2 Flow Rate FiO2 03/02/24 05:00 98.2 80 18 135/82 (99) 97 98.2 03/01/24 20:02 Room Air 0.0 03/01/24 20:02 21 Total Intake and Output 03/01/24 03/01/24 03/02/24 15:00 23:00 07:00 Intake Total 400 ml 2000 ml Balance 400 ml 2000 ml medications Current Medications Medications Dose Ordered Sig/Boom Route Start Time Stop Time Status Last Admin Dose Admin Clonidine HCl 0.1 mg Q4HP PRN PO 02/29/24 19:45 Albuterol 2.5 mg Q4HPRN PRN NEB 02/29/24 19:45 03/01/24 02:42 2.5 MG Diagnostic Test (Pha) 1 strip ACHS 02/29/24 22:00 03/02/24 06:21 1 STRIP Insulin Human Regular ACHS SC 02/29/24 22:00 Dextrose 50 ml UD PRN IV 02/29/24 19:45 Sodium Chloride 10 ml Q8HR IV 02/29/24 22:00 03/02/24 06:21 10 ML Acetaminophen/ Hydrocodone Bitart 1 tab Q4HP PRN PO 02/29/24 19:45 Ondansetron HCl 4 mg Q4HP PRN IV 02/29/24 19:45 Docusate Sodium 100 mg BIDPRN PRN PO 02/29/24 19:45 Acetaminophen 650 mg Q6HP PRN PO 02/29/24 19:45 03/01/24 13:18 650 MG Morphine Sulfate 2 mg Q4HPRN PRN IV 02/29/24 19:45 Ceftriaxone Sodium 50 ml @ 100 mls/hr DAILY@2100 IV 03/01/24 21:00 03/01/24 21:26 100 MLS/HR Sodium Chloride 1,000 ml @ 75 mls/hr [id number] IV 02/29/24 22:15 03/02/24 00:24 75 MLS/HR Nitroglycerin 0.4 mg Q5MINP PRN SL 02/29/24 23:15 Morphine Sulfate 2 mg Q30M PRN IV 02/29/24 23:15 Ipratropium Garibaldi 0.5 mg Q6HPRN PRN NEB 03/01/24 11:00 Zolpidem Tartrate 5 mg HSPRN PRN PO 03/01/24 16:15 laboratory and microbiology Laboratory Tests 03/01/24 03:35 Test 03/01/24 03:35 Range/Units Serum Glucose 109 H 74-106 mg/dL Assessment/Plan Patient is a 43-year-old female who presented with few days of chest discomfort/pressure and shortness of breath. She mentions that she started Wegovy around 2 weeks ago. She also has been on allergy shots. She started to be more short of breath and was sent to the hospital by tip puncher. She also is complaining of leg swellings for the past few weeks. She does have dyspnea on exertion. Cardiology is involved for cardiac aspects of care. Patient denies any previously diagnosed cardiac problem. She occasionally feels palpitation. She denies orthopnea/PND. She has not lost consciousness. Denies dizziness. Not in acute distress. Lying flat in bed. No JVD. Mucosa is pink and wet. No goiter. No carotid bruit. Lungs are clear to auscultation. Not using accessory muscles of breathing. Cardiac: Regular, no thrill/gallop. Abdomen is soft and obese. There is no gross mass/hepatomegaly. Bowel sound is positive. There was no tenderness. Extremities revealed bilateral 1+ edema. Dorsalis pedis is 2+ bilateral. Past medical history includes asthma, prediabetes, obesity, old history of tubal ligation//appendectomy/lap band. Family history includes diabetes mellitus. She occasionally uses marijuana. Denies regular cigarette smoking. Creatinine: 1.06 - 0.82 Potassium: 3.6 - 3.3 BNP: 11.31 Troponin (high sensitive): <3 - <3 - <3 D-dimer: 1.14 Urinalysis was positive for blood and it was turbid Chest x-ray reported: IMPRESSION: 1. No radiographic evidence of acute cardiopulmonary disease. CT angio of the chest reported: Pulmonary arteries: Adequate enhancement of the pulmonary arteries to the very proximal segmental level. Streak and motion artifact somewhat limit evaluation. As visualized, no discrete filling defects identified within the central, lobar or very proximal segmental branches. Mediastinum: Heart is normal in size. No pericardial effusion. No mediastinal adenopathy. Lung parenchyma: No dominant consolidation. Pleura: No sizable pleural effusions or pneumothorax. Chest wall and axillae: No appreciable axillary adenopathy. No grossly displaced rib fractures identified. Upper abdomen: Lap band device is noted. No acute findings as visualized. IMPRESSION: No definite evidence of pulmonary embolism as visualized. Venous duplex of lower ext revealed: IMPRESSION: 1. There is no sonographic evidence for DVT in the lower extremities. EKG reveals sinus rhythm, no ST-T changes Tele reveals sinus rhythm Echocardiogram reported: Left ventricle: Left ventricle is normal sized with normal systolic function. LVEF was 60%. There was no gross wall motion abnormalities. Right ventricle is normal sized with normal systolic function. Both atria were normal sized. Aortic valve was trileaflet. There was no Aortic Stensis/insufficiency. There was trace Mitral Regurgitation. There was no Tricuspid regurgitation. There was trace Pulmonary valve insufficiency. As there was no good tricuspid regurgitation jet, RVSP could not be estimated. There was no pericardial effusion. There was no echocardiographic evidence for pulmonary hypertension. Patient is a 43-year-old female who presented with chest discomfort/shortness of breath. Does have history of asthma. Does have a history of repeated allergies for which is being given allergy shots. Was started on Wegovy recently. Her comorbidity includes prediabetes and morbid obesity. Presentation is less considered acute coronary syndrome, still as she has risk factors echocardiogram can be justified. Serial, high sensitive troponin has been negative. EKG has been nonrevealing. D-dimer was somehow elevated, but CT angio ruled out pulmonary emboli. Presentation also questions component of asthma attack. It is of note that at the time of evaluation lungs were clear to auscultation. There was minimal peripheral edema. Presentation is not considered acute heart failure at this point. Shortness of breath Chest pain, atypical Morbid obesity Asthma attack Prediabetes Abnormal D-dimer UTI Cardiac suggestion for management: Manage on telemetry Follow-up electrolytes and kidney function tests and correct abnormalities. Keep potassium above 4 and magnesium above 2 Ischemic workup (nuclear stress test) and long-term monitor can be arranged as outpatient. Management of possible UTI as per primary team Further evaluation and management depends on the above and clinical course Lifestyle and risk factor modifications Cardiac smith, can be followed as outpatient A total of 55 minutes was spent reviewing the patient record, examining the patient, making a diagnostic and therapeutic plan, discussing this plan with medical personnel, following up on diagnostic studies and following the patient for clinical stability excluding any and all procedures. At least 50% of this time was spent in direct, [id number] contact. Thank you for allowing me to participate in this patient's care. Further recommendations will depend on patient's clinical course. Please do not hesitate to contact me if you have any questions or concerns. This medical document was created using electronic medical record system with [email or web address] computerized dictation system. Although this document has been carefully reviewed, there may still be some phonetic and typographical errors. These areas are purely typographical due to the imperfection of the software programs, and do not reflect any compromise in the patient's medical care. Plan discussed with: Patient, Other (nurse) SILVIA BINGHAM MD Mar 02, 2024 06:37
[2024-03-02 07:08] LABS: Chloride 109 mmol/L (98-107); Potassium 3.8 mmol/L (3.5-5.1); Sodium 141 mmol/L (136-145)
[2024-03-02 07:09] LABS: Anion Gap 5 (5-15); Carbon Dioxide 27 mmol/L (20-31)
[2024-03-02 07:10] LABS: Eosinophils # (auto) 0.2 10 ^3/uL (0-0.8); Lymphocytes # (auto) 1.5 10 ^3/uL (0.4-5.4); Monocytes # (auto) 0.4 10 ^3/uL (0-1.3); Neutrophils # (auto) 2.3 10 ^3/uL (1.6-8.6); White Blood Cell 4.5 10^3/uL (4.4-10.8)
[2024-03-02 07:14] LABS: BUN/Creatinine Ratio 6.9 (10.0-20.0); Basophils # (auto) 0 10 ^3/uL (0-0.2); Basophils % (auto) 0.9 % (0.0-2.0); Blood Urea Nitrogen 6 mg/dL (9-23); Eosinophils % (auto) 5.1 % (0.0-7.0); Glucose 96 mg/dL (74-106); Hematocrit 34.6 % (36.0-46.0); Hemoglobin 11.4 g/dL (12.2-16.2); Lymphocytes % (auto) 33.7 % (10.0-50.0); Mean Corpuscular Hemoglobin 25.9 pg (28.0-32.0); Mean Corpuscular Hgb Conc. 33.1 g/dL (32.0-36.0); Mean Corpuscular Volume 78.2 fL (80.0-100.0); Monocytes % (auto) 9.1 % (0.0-12.0); Neutrophils % (auto) 51.2 % (37.0-80.0); Platelet Count (auto) 292 10^3/uL (140-450); Red Blood Cells 4.42 10^6/uL (4.0-5.20); Red Cell Distribution Width 16.7 % (11.8-14.3)
[2024-03-02 10:00] VITALS: O2SAT 96
[2024-03-02 11:27] VITALS: O2SAT 96
--- NOTE | 2024-03-02 15:06 | DVHDSRES ---
Discharge Summary Date of Admission Resident Creating Document: CHINMAY BARCENAS Feb 29, 2024 at 23:10 Date of Discharge: Mar 02, 2024 Admitting Diagnosis Acute Chest pain and shortness of breaths Labs/Diagnostic Data: Laboratory Results Test 03/02/24 06:22 03/02/24 06:19 03/01/24 03:35 02/29/24 19:55 White Blood Count 4.5 10^3/uL (4.4-10.8) Red Blood Count 4.42 10^6/uL (4.0-5.20) Hemoglobin 11.4 g/dL (12.2-16.2) Hematocrit 34.6 % (36.0-46.0) Mean Corpuscular Volume 78.2 fL (80.0-100.0) Mean Corpuscular Hemoglobin 25.9 pg (28.0-32.0) Mean Corpuscular Hemoglobin Concent 33.1 g/dL (32.0-36.0) Red Cell Distribution Width 16.7 % (11.8-14.3) Platelet Count 292 10^3/uL (140-450) Mean Platelet Volume 8.6 fL (6.9-10.8) Neutrophils (%) (Auto) 51.2 % (37.0-80.0) Lymphocytes (%) (Auto) 33.7 % (10.0-50.0) Monocytes (%) (Auto) 9.1 % (0.0-12.0) Eosinophils (%) (Auto) 5.1 % (0.0-7.0) Basophils (%) (Auto) 0.9 % (0.0-2.0) Neutrophils # (Auto) 2.3 10 ^3/uL (1.6-8.6) Lymphocytes # (Auto) 1.5 10 ^3/uL (0.4-5.4) Monocytes # (Auto) 0.4 10 ^3/uL (0-1.3) Eosinophils # (Auto) 0.2 10 ^3/uL (0-0.8) Basophils # (Auto) 0 10 ^3/uL (0-0.2) Nucleated Red Blood Cells 0.0 % Sodium Level 141 mmol/L (136-145) Potassium Level 3.8 mmol/L (3.5-5.1) Chloride Level 109 mmol/L (98-107) Carbon Dioxide Level 27 mmol/L (20-31) Anion Gap 5 (5-15) Blood Urea Nitrogen 6 mg/dL (9-23) Creatinine 0.87 mg/dL (0.550-1.02) Glomerular Filtration Rate Calc 85 mL/min (>90) BUN/Creatinine Ratio 6.9 (10.0-20.0) Serum Glucose 96 mg/dL (74-106) Calcium Level 9.0 mg/dL (8.7-10.4) POC Glucose 98 mg/dl (70-106) Total Bilirubin 0.4 mg/dL (0.2-1.0) Aspartate Amino Transferase (AST) 16 U/L (13-40) Alanine Aminotransferase (ALT) 24 U/L (7-40) Alkaline Phosphatase 56 U/L (46-116) Total Protein 7.4 g/dL (5.7-8.2) Albumin 4.2 g/dL (3.2-4.8) Troponin I High Sensitivity < 3 ng/L (</=34) Test 02/29/24 17:09 02/29/24 16:55 D-Dimer, Quantitative 1.14 mg/L FEU (0.0-0.49) B-Type Natriuretic Peptide 11.31 pg/mL (0-100) Urine Color Light-red (Yellow) Urine Clarity Turbid (Clear) Urine pH 5.5 (5.0-9.0) Urine Specific Preston 1.012 (1.001-1.035) Urine Protein 1+ (Negative) Urine Ketones 1+ (Negative) Urine Blood 3+ /uL (Negative) Urine Nitrite Negative (Negative) Urine Bilirubin Negative (Negative) Urine Urobilinogen Normal mg/dL (Negative) Urine Leukocyte Esterase 2+ /uL (Negative) Urine RBC 2920 /hpf (0 - 4) Urine WBC 153 /hpf (0 - 5) Urine Squamous Epithelial Cells Few /hpf (<5) Urine Bacteria None seen /hpf (None Seen) Urine Glucose Normal mg/dL (Normal) Other Laboratory Tests 03/02/24 06:22 Brief Hx & Hospital Course: Patient is 43 years old female with past medical history of bronchial asthma, prediabetes, obesity came with a complaint of chest pain that started 1 day ago. Patient reported pain was central in nature, pressure-like, radiating to the left jaw and back, 8/10 in severity, no aggravating or relieving factor. Patient also endorsed short of breath and some wheezing during chest pain. On further discussion patient also reported having cough with mild whitish phlegm and some palpitation. Patient denied fever, troponin to the chest, acute joint pain or swelling, diarrhea, constipation, dizziness or vertigo, dysarthria. EKG revealed within sinus rhythm, no ST elevation noted. Initial lab workup revealed mild hypokalemia potassium 3.3, ERI serum creatinine 1.06, D-dimer mildly elevated 1.14, urinalysis significant for UTI, leukocyte esterase 2+, WBC 143, RBC 2920. CT angio negative for pulmonary embolism. Doppler study of the lower extremity was negative for DVT. Echo 2D LVEF 60%. Patient's symptom improved with the conservative management. Patient was seen by Cardiology and recommended chest pain was unlikely acute coronary syndrome. Cardiology also recommended-Ischemic workup (nuclear stress test) and long-term monitor can be arranged as outpatient. Patient is being discharged home today in hemodynamically stable condition. Patient was advised to follow up with the PCP in 1 week and also to follow up with the administrative processor in 1-2 weeks. PMH-bronchial asthma, prediabetes, obesity PSH- Tubal ligation, adenoidectomy, lap band and emergency Allergy- NKDA Personal History/ Social History- denies smoking/alcoholism/drug abuse, lives with son use Patient was seen today at the bedside. Patient reports feeling better today Gastrointestinal- denies any rectal bleeding, nausea or vomiting Musculoskeletal-denies acute joint swelling or tenderness or redness Neurological- denies acute dysarthria, dysphagia, change in vision Psychiatry- denies depression or SI or HI Skin- denies acute rash or purpura General examination- awake, alert, oriented, conversant HEENT- PEERLA, no acute nasal discharge Cardiovascular- S1-S2 audible, rate and rhythm regular, no murmur Respiratory- CTAB, no wheeze or rhonchi Gastrointestinal-nontender, bowel sound+. Nondistended Musculoskeletal-no acute joint swelling or tenderness or redness# Lower extremity- no leg edema Neurological- cranial nerves intact, no acute dysarthria or dysphagia Psychiatry- denies depression or SI or HI Skin- no acute rash or purpura Operations or Procedures PATIENT: TOMAS MARX ACCT: [id number] UNIT: [id number] : 1980 LOC: ER ROOM / BED: / AGE / SEX: 43 / F ADM STATUS: REG ER SERVICE 1551 ORDERING PHYSICIAN: DAVID CRUZ MD PROCEDURE(s): CXRP - CHEST PORTABLE REASON: sob ORDER NUMBER(s): [id number], ACCESSION NUMBER(s): [id number] CHEST RADIOGRAPH Indication:sob Technique: Single frontal view of the chest was obtained Comparison: None FINDINGS: Lines and Tubes: None Lungs: No focal consolidation. Pleura: No effusion. No pneumothorax. Cardiomediastinal contours: Unremarkable Bones: No acute osseous abnormality. IMPRESSION: 1. No radiographic evidence of acute cardiopulmonary disease. HS:Y ATED BY: ORA GUARDADO DO DICTATED DATE/TIME: 02/29/24 1630 SIGNED BY: ORA GUARDADO DO SIGNED DATE/TIME: 02/29/24 1630 CC: Signed PATIENT: TOMAS MARX ACCT: [id number] UNIT: [id number] : 1980 LOC: ER ROOM / BED: / AGE / SEX: 43 / F ADM STATUS: REG ER SERVICE 03 ORDERING PHYSICIAN: DAVID CRUZ MD PROCEDURE(s): CTACH - CT ANGIO CHEST CONTRAST REASON: sob ORDER NUMBER(s): [id number], ACCESSION NUMBER(s): [id number] CT ANGIOGRAM CHEST WITH CONTRAST FOR PULMONARY EMBOLUS CLINICAL HISTORY: sob TECHNIQUE: Helical axial scans of the chest during dynamic intravenous contrast injection. Pulmonary embolism protocol. Multiplanar reformats. Postprocessing MIP images. One or more of the following radiation dose reduction techniques were used for this examination: automated exposure control, adjustment of the mA and/or kV according to patient size, use of iterative reconstruction technique. COMPARISON: Chest x-ray obtained earlier the same day. FINDINGS: Pulmonary arteries: Adequate enhancement of the pulmonary arteries to the very proximal segmental level. Streak and motion artifact somewhat limit evaluation. As visualized, no discrete filling defects identified within the central, lobar or very proximal segmental branches. Mediastinum: Heart is normal in size. No pericardial effusion. No mediastinal adenopathy. Lung parenchyma: No dominant consolidation. Pleura: No sizable pleural effusions or pneumothorax. Chest wall and axillae: No appreciable axillary adenopathy. No grossly displaced rib fractures identified. Upper abdomen: Lap band device is noted. No acute findings as visualized. IMPRESSION: No definite evidence of pulmonary embolism as visualized. ATED BY: CYRUS BROUSSARD MD DICTATED DATE/TIME: 02/29/242115 SIGNED BY: CRYUS BROUSSARD MD SIGNED DATE/TIME: 02/29/242115 CC: Signed PATIENT: TOMAS MARX ACCT: [id number] UNIT: [id number] : 1980 LOC: OVERFLOW ROOM / [facility] A AGE / SEX: 43 / F ADM STATUS: ADM IN SERVICE 0632 ORDERING PHYSICIAN: SILVIA BINGHAM MD PROCEDURE(s): BLDVT - BiLat Lower DVT REASON: r/o dvt ORDER NUMBER(s): [id number], ACCESSION NUMBER(s): [id number] BILATERAL LOWER EXTREMITY VENOUS DOPPLER CLINICAL HISTORY: r/o dvt Technique: Duplex Doppler evaluation of the deep venous systems of both lower extremities from the common femoral veins to the popliteal veins including color Doppler and spectral/pulsed waveform analysis was performed. COMPARISON: None FINDINGS: The right and left common femoral, superficial femoral, popliteal, posterior tibial and peroneal veins appear patent with normal augmentation, phasicity, compressibility and color-flow. IMPRESSION: 1. There is no sonographic evidence for DVT in the lower extremities. HS:Y ATED BY: NIC BROUSSARD MD DICTATED DATE/TIME: 03/01/24833 SIGNED BY: NIC BROUSSARD MD SIGNED DATE/TIME: 03/01/24833 CC: Signed PATIENT: TOMAS MARX ACCT: [id number] UNIT: [id number] : 1980 LOC: CENTRAL ROOM / BED: 0217 / B AGE / SEX: 43 / F ADM STATUS: ADM IN SERVICE 0357 ORDERING PHYSICIAN: PAOLA BELLA RESIDENT PROCEDURE(s): ECIDC - ECHO 2D MODE CARDIAC DOP REASON: chest pain ORDER NUMBER(s): [id number], ACCESSION NUMBER(s): [id number] APPROVED REPORT EXAM: Two-dimensional and M-mode echocardiogram with Doppler and color Doppler. Blood Pressure: 157/71 mmHg INDICATION Chest Pain RISK FACTORS Obesity: Height: 5'3", Weight: 232 DIMENSIONS LVDd 4.4 (3.8-5.7cm) LA (2D) 4.2 (1.9-4.0cm) Aortic Root 3.3 (2.0- 3.7cm) LVDs 3.0 (2.5-4.0cm) LA (MM) (1.9-4.0cm) Aortic Cusp Exc 1.8 (1.5- 2.0cm) EF (%) 60.0 (55-70%) Rt. Atrium 3.7 (1.9-4.0cm) Asc. Aorta cm IVSd 0.9 (0.7-1.1cm) RV (D) 3.6 (1.8-2.4cm) PWd 0.9 (0.7-1.1cm) Mitral Valve Mitral Mitral Stenosis E wave 0.78m/s MV Mean GR. mmHg A wave 0.82m/s MV Peak GR. mmHg E/A ratio 1.0 2D MVA cm2 DECEL Time 284ms PRESS 1/2 Time ms Aortic Valve Aortic Valve Aortic Stenosis V1 0.95m/s AO Mean GR. 5mmHg V2 1.54m/s AO Peak GR. 9mmHg LVOT Diameter 1.9 (1.8-2.4cm) Doppler CONCHITA 1.75cm2 Pulmonic Valve V2 0.85m/s Conclusion Left ventricle: Left ventricle is normal sized with normal systolic function. LVEF was 60%. There was no gross wall motion abnormalities. Right ventricle is normal sized with normal systolic function. Both atria were normal sized. Aortic valve was trileaflet. There was no Aortic Stensis/insufficiency. There was trace Mitral Regurgitation. There was no Tricuspid regurgitation. There was trace Pulmonary valve insufficiency. As there was no good tricuspid regurgitation jet, RVSP could not be estimated. There was no pericardial effusion. There was no echocardiographic evidence for pulmonary hypertension. SIGNED BY: SILVIA BINGHAM MD SIGNED DATE/TIME: 03/01/24 2589 CC: Condition at Discharge: Stable Final Diagnosis/Problems List Acute hypoxic respiratory failure likely due to acute exacerbation asthma Acute chest pain and shortness of breaths likely due to acute exacerbation of asthma, ruleed out ACS Acute chest pain and shortness of breaths likely due to acute exacerbation of asthma, ruleed out ACS No UTI, likely contributes sample of urine was taken ERI likely due toVMN Hypokalemia, mild, replenished mildly elevated D-dimer, PE ruled out Prediabetes Obesity Discharge Disposition: Home Discharge Instruct/Medications Diet: Consistent carbohydrate Activity: No Restrictions, As Tolerated Follow Up/Referral: Please follow up with the PCP in 1 week and also to follow up with your administrative processor in 1-2 weeks for Ischemic workup (nuclear stress test) and long-term monitor as outpatient as per Cardiology recommendation Medications: Resume home medications Albuterol inhaler p.r.n. Discharge Statement: "Patient was advised to return to the ER or call 911 if any headaches, dizziness, shortness of breath, chest pain, abdominal pain, bleeding, fevers, or worsening of medical condition. Patient was counseled about treatment plan, medications, possible side effects, patientverbalized understanding. All questions were answered to the best of my ability. This discharge took greater then 30 minutes in planning, reviewing documentation, counseling the patient, and discussing with other team members." ASSESSMENT ASSESSMENT Assessment Acute hypoxic respiratory failure likely due to acute exacerbation asthma Acute chest pain and shortness of breaths likely due to acute exacerbation of asthma, ruleed out ACS Acute chest pain and shortness of breaths likely due to acute exacerbation of asthma, ruleed out ACS UTI ERI likely due toVMN Hypokalemia, mild, replenished mildly elevated D-dimer, PE ruled out Prediabetes Obesity Date of Service: Mar 02, 2024 Billing Provider: RACH CABALLERO MD Common Visit Codes: 61284-RIG/OBS DISCH DAY >30min CHINMAY BARCENAS Mar 02, 2024 15:05 RACH CABALLERO MD Mar 02, 2024 22:03
== END 2024-03-02 12:03 | disposition home or self-care (01) | DRG 141 ==
LOC: ER 14:54 → OVERFLOW 23:10 → CENTRAL 03-01 13:07
PROVIDERS: ADMIT Internal Medicine Geriatric Medicine; ATTEND Emergency Medicine
DX: J45.21 Mild intermittent asthma with (acute) exacerbation (principal); J96.01 Acute respiratory failure with hypoxia; N17.0 Acute kidney failure with tubular necrosis; N30.00 Acute cystitis without hematuria; E66.01 Morbid (severe) obesity due to excess calories; R73.03 Prediabetes; R79.89 Other specified abnormal findings of blood chemistry; E87.6 Hypokalemia; Z83.3 Family history of diabetes mellitus; Z90.710 Acquired absence of both cervix and uterus; Z90.49 Acquired absence of other specified parts of digestive tract; Z98.51 Tubal ligation status; Z68.41 Body mass index [BMI] 40.0-44.9, adult
CPT/HCPCS: 36415; 71045; 71275; 80048; 80053; 81001; 82962; 83880; 84484; 85025; 85379; 93005; 93306; 93970; 94640; 99291; G0378

== ENCOUNTER 2024-06-24 06:47 | Day surgery (SDC) | payer MEDICAID ==
[~2024-06-24] VITALS: Ht 160 cm; Wt 99.8 kg
[~2024-06-24 06:47] MED LIST: ALBU108A5 IN; CHOL200029 PO; DILT120T16 PO; POM PO; VITA100T3 PO
[2024-06-24] MEDS ORDERED: fentaNYL CITRATE 100 MCG/2 ML VL ONE (07:40)
[2024-06-24] MEDS ORDERED: VERAPAMIL 2.5MG/ML INJ 2ML VIAL IV ONE (07:40)
[2024-06-24] MEDS ORDERED: ANGIOMAX 250 MG VIAL IV ONE (07:40)
[2024-06-24] MEDS ORDERED: MIDAZOLAM HCL 2MG/2ML 2ml VIAL (1mg/ml) ONE (07:41)
[2024-06-24] MEDS ORDERED: LIDOCAINE 2%HCL (LOCAL ANESTH.) INJ 20ML MDV ONE (07:41)
[2024-06-24] MEDS ORDERED: SODIUM CHL 0.9% 0 ML ONE (07:41)
[2024-06-24] MEDS ORDERED: IODIXANOL 320MG/ML 100ML BTL IV ONE (08:00)
[2024-06-24] MEDS ORDERED: HEPARIN SODIUM (PORCINE) 5000 UNITS/ML 1ML VIAL ONE (08:20)
[2024-06-24 08:42] VITALS: BP 145/93; PULSE 81; RESP 18; O2SAT 99
--- NOTE | 2024-06-24 08:52 | DVHOP2 ---
Operative Report Procedures performed: Left heart catheterization and bilateral coronary angiogram Moderate sedation Sonogram guided access Diagnosis: No angiographic evidence for epicardial coronary artery disease (normal matilde naries) LVEF of 65% with normal EDP Cardiac suggestion for management: Optimized medical therapy Lifestyle and risk factor modifications Findings: LVEF: 65% LVEDP: 11 mm Hg There was no transaortic valve pressure gradient Left main: Left main was coming off the left sinus of Valsalva. There was no angiographic evidence of disease in left main. LAD: LAD was coming off the left main. It provided 2 medium sized diagonals. LAD throughout its course and branches did not reveal any angiographic evidence of disease. Ramus intermedius: Ramus intermedius was coming off the left main. It was a medium sized vessel with no angiographic evidence of disease. LCX: LCX was coming off the left main. It continued as a large OM itself. LCX throughout its course and branches did not reveal any angiographic evidence of disease. RCA: RCA was coming off the right sinus of Valsalva. It was a dominant vessel and provided RPDA/RPLS. RPLS was a large-sized vessel. RPLB was medium-sized vessel. RPDA was a medium-sized vessel. RCA throughout its course and branches did not reveal any angiographic evidence of disease. Presentation: Patient is a 43-year-old female presented with dyspnea on exertion and occasional chest pains. Does have history of morbid obesity for which had lap-band years ago. Her comorbidities include asthma and hypertension. She also has prediabetes. Echocardiogram of February 2024 (performed in [facility]) revealed normal-sized left ventricle, ejection fraction of 60%, no wall motion abnormality and no pulmonary hypertension. Lexiscan of April 2024 (performed in the office) was abnormal and the patient was sent for cardiac catheterization. Procedure: After obtaining informed consent, the patient was brought to the carpenter/labor. She was prepped and draped in sterile fashion. Right radial artery was used for access site. 1 mg of Versed and 50 mcg of fentanyl were used for moderate sedation. 5000 units of heparin was given peripherally. Using modified Seldinger technique, the right radial artery was accessed (under fluoro guidance) and a 6 Mosotho slender sheath was inserted into it. 2.5 mg of verapamil and 100 mcg of nitroglycerin were given as a cocktail into the right radial sheath. A 5 Mosotho tiger 4 diagnostic catheter was used to perform left heart catheterization (obtaining pressures and performing left ventriculography) and bilateral coronary angiography. There was no indication for any transcatheter revascularization. There was no dissection/hematoma/perforation. Total bleeding was less than 5 mL. Patient tolerated the procedure with no complication. Right radial artery access site was managed by deploying a TR band. Fluoroscopy time: 1.8 minutes contrast: 30 mL of GeeipaSILVIA Fletcher MD Jun 24, 2024 08:52
[2024-06-24 08:58] VITALS: BP 148/94; PULSE 75; RESP 19; O2SAT 100
[2024-06-24 09:12] VITALS: BP 139/92; PULSE 73; RESP 16; O2SAT 99
[2024-06-24 09:27] VITALS: BP 140/91; PULSE 75; RESP 20; O2SAT 96
[2024-06-24 10:04] VITALS: BP 133/85; PULSE 73; RESP 19; O2SAT 97
[2024-06-24 10:34] VITALS: BP 136/91; PULSE 85; RESP 24; O2SAT 97
== END 2024-06-24 10:49 | disposition home or self-care (01) ==
LOC: CATH 06:47
PROVIDERS: ATTEND Internal Medicine Cardiovascular Disease
DX: R94.39 Abnormal result of other cardiovascular function study (principal); R07.9 Chest pain, unspecified; I10 Essential (primary) hypertension; E66.01 Morbid (severe) obesity due to excess calories; J45.909 Unspecified asthma, uncomplicated; R73.03 Prediabetes; R06.09 Other forms of dyspnea; Z98.890 Other specified postprocedural states
CPT/HCPCS: 93458; C1894; J1644; J2250; J3010; J7030; Q9967; 99152; 99153